=== PATIENT | female | born 2000 | race American Indian/Alaskan Native ===

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

== ENCOUNTER 2024-01-21 14:53 | Emergency (ER) | payer MEDICAID ==
[2024-01-21] MEDS: Ondansetron 4 MG/2 ML SDV IVPUSH ONE (15:14)
[2024-01-21] MEDS: Lactated Ringers 1,000 ML IV SCH (15:16)
[2024-01-21] MEDS: Sodium Chloride 0.9% 1,000 ML IV SCH (16:58)
[2024-01-21] MEDS: Metoclopramide 10 MG/2 ML SDV IVPUSH ONE (16:58)
[2024-01-21 19:43] LABS: AMPHETAMINES SCREEN, URINE PRESUMPTIVE POSITIVE (CUTOFF=500); BARBITURATE SCREEN,URINE NEGATIVE (CUTOFF=200); BENZODIAZEPINES SCREEN,URINE NEGATIVE (CUTOFF=150); BUPRENORPHINE SCREEN,URINE NEGATIVE (CUTOFF=10); METHADONE SCREEN, URINE NEGATIVE (CUTOFF=200); METHAMPHETAMINES SCREEN, URINE PRESUMPTIVE POSITIVE (CUTOFF=500); OXYCODONE SCREEN,URINE NEGATIVE (CUT0FF=100); THC SCREEN,URINE 20 NG/ML NEGATIVE (CUTOFF=50)
[2024-01-21 21:26] VITALS: BP 138/85; PULSE 88
== END 2024-01-21 21:21 | disposition home or self-care (01) ==
LOC: JD.ED 14:53
DX: T40.2X4A Poisoning by other opioids, undetermined, initial encounter (principal); Z79.899 Other long term (current) drug therapy
CPT/HCPCS: 80306; 81025; 96361; 96374; 96375; 99284; 99284-25; J2405; J2765; J7030; J7120